=== PATIENT | female | born 1990 | race Caucasian/White ===

== ENCOUNTER → 2016-12-10 | Outpatient (REF) | payer BC, MEDICAID ==
[2016-12-10 16:27] LABS: FREE T4 1.33 NG/DL (0.76-1.46)
== END ==
LOC: M LABDRAW1 15:39
PROVIDERS: ATTEND Physician Assistant Medical
DX: E06.3 Autoimmune thyroiditis (principal)

== ENCOUNTER → 2017-03-11 | Outpatient (REF) | payer BC, MEDICAID ==
[2017-03-11 12:31] LABS: FREE T4 1.28 NG/DL (0.76-1.46)
== END ==
LOC: M LABDRAW1 11:41
PROVIDERS: ATTEND Physician Assistant Medical
DX: E06.3 Autoimmune thyroiditis (principal)

== ENCOUNTER → 2018-01-06 | Outpatient (REF) | payer OTHER ==
[2018-01-06 16:33] LABS: FREE T4 1.42 NG/DL (0.76-1.46); THYROID STIMULATING HORMONE 0.263 uIU/ML (0.358-3.740)
== END ==
LOC: M LABDRAW1 15:39
DX: E06.3 Autoimmune thyroiditis (principal)

== ENCOUNTER → 2019-02-15 | Outpatient (REF) | payer OTHER | LOC: M LAB LCGH 17:37 | PROVIDERS: ATTEND Nurse Practitioner Adult Health | DX: Z12.4 Encounter for screening for malignant neoplasm of cervix (principal) ==

== ENCOUNTER → 2019-07-23 | Outpatient (REF) | payer OTHER | LOC: M LAB REF 12:40 | PROVIDERS: ATTEND Nurse Practitioner Family | DX: L30.9 Dermatitis, unspecified (principal) ==

== ENCOUNTER → 2021-01-02 | Outpatient (REF) | payer OTHER | LOC: M SFHCWAGY 17:15 | PROVIDERS: ATTEND Nurse Practitioner Women's Health | DX: N76.0 Acute vaginitis (principal) ==

== ENCOUNTER → 2021-03-31 | Outpatient (REF) | payer OTHER | LOC: M SFHCWAGY 10:06 | PROVIDERS: ATTEND Nurse Practitioner Women's Health | DX: Z12.4 Encounter for screening for malignant neoplasm of cervix (principal) | CPT/HCPCS: 87624; G0123 ==

== ENCOUNTER → 2022-04-02 | Outpatient (REF) | payer OTHER | LOC: M PLALAB 09:23 | PROVIDERS: ATTEND Advanced Practice Midwife | DX: Z12.4 Encounter for screening for malignant neoplasm of cervix (principal) | CPT/HCPCS: 87624; G0123 ==

== ENCOUNTER → 2023-08-12 | Outpatient (REF) | payer OTHER | LOC: M SFHCWAGY 15:35 | PROVIDERS: ATTEND Advanced Practice Midwife | DX: Z12.4 Encounter for screening for malignant neoplasm of cervix (principal); R87.610 Atypical squamous cells of undetermined significance on cytologic smear of cervix (ASC-US) | CPT/HCPCS: 87624; G0123 ==

== ENCOUNTER → 2024-08-14 | Outpatient (REF) | payer OTHER | LOC: M PLALAB 11:13 | PROVIDERS: ATTEND Advanced Practice Midwife | DX: Z12.4 Encounter for screening for malignant neoplasm of cervix (principal); R87.610 Atypical squamous cells of undetermined significance on cytologic smear of cervix (ASC-US) | CPT/HCPCS: 87624; G0123 ==

== ENCOUNTER → 2025-10-28 | Outpatient (REF) | payer OTHER ==
[2025-10-30 16:02] LABS: HPV APTIMA Not Detected (Not Detected)
== END ==
LOC: M SFHCWAGY 18:05
PROVIDERS: ATTEND Advanced Practice Midwife
DX: Z12.4 Encounter for screening for malignant neoplasm of cervix (principal); R87.610 Atypical squamous cells of undetermined significance on cytologic smear of cervix (ASC-US)
CPT/HCPCS: 87624; G0123